=== PATIENT | female | born 1995 | race Caucasian/White ===

== ENCOUNTER 2017-05-14 22:21 | Emergency (ER) | payer SELFPAY ==
[~2017-05-14] VITALS: Ht 160 cm; Wt 54.0 kg
[2017-05-14 22:44] VITALS: BP 132/69
--- NOTE | 2017-05-14 22:49 | NUR ---
TO LOBBY, A/W DINORA PAYNE ERMD NOTED
--- NOTE | 2017-05-15 00:18 | NUR ---
PATIENT AMBULATED TO ER BED 10.
--- NOTE | 2017-05-15 00:20 | NUR ---
PATIENT IS A 21 Y/O FEMALE WHO PRESENTS TO THE ED C/O URINARY BURNING. PT STATES, "THIS HAS BEEN GOING ON FOR ABOUT 3 DAYS NOW." PT REPORTS 4/10 BURNING URINARY PAIN THAT RADIATES TO THE STOMACH. PT DENIES CP, SOB, N/V/D. PT AAOX4, RR EVEN/UNLABORED. PT REPOSITIONED FOR COMFORT, BED IN LOWEST POSITION. ER MD DR. PENA NOTIFIED. WILL CONTINUE TO MONITOR.
[2017-05-15 01:31] VITALS: BP 129/72
--- NOTE | 2017-05-15 01:31 | NUR ---
Patient discharged with v/s stable. Written and verbal after care instructions given and explained. Patient alert, oriented and verbalized understanding of instructions. Ambulatory with steady gait. All questions addressed prior to discharge. ID band removed. Patient advised to follow up with PMD. Rx of PYRIDIUM 200MG, MOTRIN 600MG AND CIPRO 500MG given. Patient educated on indication of medication including possible reaction and side effects. Opportunity to ask questions provided and answered.
== END 2017-05-15 01:31 | disposition home or self-care (01) ==
LOC: MED 22:21
DX: N39.0 Urinary tract infection, site not specified (principal)
CPT/HCPCS: 81002; 81025; 99283

== ENCOUNTER 2018-07-02 22:17 | Emergency (ER) | payer OTHER ==
[~2018-07-02] VITALS: Ht 160 cm; Wt 47.6 kg
[2018-07-02 22:25] VITALS: BP 139/76
--- NOTE | 2018-07-02 22:27 | NUR ---
PT AMBULATORY TO BR THEN TO ER LOBBY W/ STEADY GAIT IN STABLE CONDITION.
--- NOTE | 2018-07-02 22:37 | NUR ---
PT TAKEN TO BED 5
--- NOTE | 2018-07-02 22:43 | NUR ---
PT TO ED WITH C/O DYSURIA AND HEMATURIA X 1 DAY. NO BLADDER DISTENTION NOTED. DENIES VAGINAL DISCHARGE OR BLEEDING. PT PLACED INTO BED, PENDING MD CASPER.
[2018-07-02 22:58] LABS: APPEARANCE,URINE CLOUDY (CLEAR); BILIRUBIN,URINE NEGATIVE (NEGATIVE); BLOOD, URINE 3+ (NEGATIVE); COLOR,URINE YELLOW (YELLOW); LEUKOCYTE ESTERASE ,URINE 1+ (NEGATIVE); NITRITE, URINE POSITIVE (NEGATIVE); PH,URINE 6.5 (5.0-9.0); UGLUCOSE NEGATIVE (NEGATIVE)
--- NOTE | 2018-07-02 23:06 | NUR ---
Dr. Shankar evaluating patient at bedside.
[2018-07-02 23:19] LABS: RBC,URINE TOO NUMEROUS TO COUN /HPF (0-5); WBC,URINE TOO MANY TO COUNT /HPF (0-5)
--- NOTE | 2018-07-02 23:32 | NUR ---
Patient discharged with v/s stable. Written and verbal after care instructions given and explained. Patient alert, oriented and verbalized understanding of instructions. Ambulatory with steady gait. All questions addressed prior to discharge. ID band removed. Patient advised to follow up with PMD. Rx of MACROBID, PYRIDUM given. Patient educated on indication of medication including possible reaction and side effects. Opportunity to ask questions provided and answered.
[2018-07-02 23:43] VITALS: BP 131/69
== END 2018-07-02 23:32 | disposition home or self-care (01) ==
LOC: MED 22:17
DX: N39.0 Urinary tract infection, site not specified (principal)
CPT/HCPCS: 81001; 81002; 81025; 87086; 87186; 99283

== ENCOUNTER 2019-02-11 18:21 | Emergency (ER) | payer OTHER ==
[~2019-02-11] VITALS: Ht 160 cm; Wt 46.3 kg
[2019-02-11 19:08] VITALS: BP 146/72
--- NOTE | 2019-02-11 20:39 | NUR ---
PT AMBULATED TO BED 7
--- NOTE | 2019-02-11 21:12 | NUR ---
23 Y/O FEMALE PRESENTS TO ED, C/O COLD LIKE SYMTPOMS. PT STATES IT STARTED LAST FRIDAY. PT DENIES ANY FEVER. PT DENIES ANY N/V/D. NO SOB/CHEST PAIN. PT STATES FEELING GENERALIZED PAIN/WEAKNESS. PT TOOK TYLENOL LAST FRIDAY. PT STABLE. ERMD AWARE. WILL CONTINUE TO MONITOR.
[2019-02-11 21:45] VITALS: BP 131/70
--- NOTE | 2019-02-11 21:45 | NUR ---
PT DISCHARGED BY DR KWOK, PAPERWORK PROVIDED. RX AUGMENTIN. EDUCATED PT REGARDING MEDICATION AND S/E. EDUCATED PT REGARDING D/C DIAGNOSIS AND INSTRUCTIONS. PT VERBALIZED UNDERSTANDING OF TEACHING. TOLD PT TO FOLLOW UP WITH PCP AND WHEN TO RETURN TO ED. PT VSS. ALL QUESTIONS ANSWERED.
== END 2019-02-11 21:45 | disposition home or self-care (01) ==
LOC: MED 18:21
DX: J40 Bronchitis, not specified as acute or chronic (principal)
CPT/HCPCS: 99283

== ENCOUNTER 2020-11-17 22:17 | Emergency (ER) | payer MEDICAID, OTHER ==
[~2020-11-17] VITALS: Ht 160 cm; Wt 46.7 kg
[2020-11-17 22:32] VITALS: BP 137/71
--- NOTE | 2020-11-17 22:52 | NUR ---
PT AMBULATED TO TRIAGE FOR EKG.
--- NOTE | 2020-11-17 22:59 | NUR ---
PT RETURNED TO LOBBY.
--- NOTE | 2020-11-17 23:14 | NUR ---
PATIENT TAKEN TO BED 2.
--- NOTE | 2020-11-17 23:50 | NUR ---
24 YO/F BIB SELF W CO "PANIC ATTACK", CHEST TIGHTNESS, DIFFICULTY BREATHING, AND FEELING LIKE HER STOMACH IS FULL X2 WEEKS BUT CONTINUOUS SINCE 1900 TODAY. PATIENT REPORTS PAIN OF 0/10 BUT REPORTS CHEST DISCOMFORT. ALSO REPORTS DRY COUGH AND IS ON ABX BY PCP. S1S2 PRESENT, CAP REFIL <3SEC, PULSES +2. BREATHING EVEN AND UNLABORED, LUNG SOUNDS CLEAR THROUHGOUT. PATIENT CONNECTED TO MONITOR W VSS. PATIENT SITTING IN BED LOCKED IN LOWEST POSITION X1 SIDE RAIL UP. NAD NOTED, WILL CONTINUE TO MONITOR. PMH:ANEMIA NKA
[2020-11-17] MEDS ORDERED: LORazepam 0.5 MG TAB PO ONE (23:55)
--- NOTE | 2020-11-18 00:30 | NUR ---
PATIENT REPORTS SHE FEELS BETTER AND REPORTS CHEST TIGHTNESS IS GONE.
[2020-11-18 00:37] VITALS: BP 124/73
--- NOTE | 2020-11-18 00:37 | NUR ---
Patient discharged with v/s stable. Written and verbal after care instructions given and explained. Patient verbalized understanding. Ambulatory with steady gait. All questions addressed prior to discharge. Advised to follow up with PMD.
== END 2020-11-18 00:37 | disposition home or self-care (01) ==
LOC: MED 22:17
DX: R07.89 Other chest pain (principal)
CPT/HCPCS: 71045; 93005; 99283

== ENCOUNTER 2021-03-16 21:55 | Emergency (ER) | payer MEDICAID ==
[~2021-03-16] VITALS: Ht 160 cm; Wt 48.6 kg
[2021-03-16 22:37] VITALS: BP 114/84
--- NOTE | 2021-03-17 00:39 | NUR ---
pt taken to bed 11.
--- NOTE | 2021-03-17 00:40 | NUR ---
RECEIVED IN BED 11 WITH C/O CHEST PAIN AFTER EATING. "I FEEL BLOATED AFTER I EAT" 5/10 chest tightness x5days, feel sob. gets worse after eating. went to [facility] 2days ago. went to urgent care for same reason -given methylpredisolone denies hx nkda
[2021-03-17] MEDS ORDERED: FAMO-92 PO (01:23)
--- NOTE | 2021-03-17 01:26 | NUR ---
DR KWOK AT BEDSIDE FOR EXAM
== END 2021-03-17 01:30 | disposition home or self-care (01) ==
LOC: MED 21:55
DX: R07.89 Other chest pain (principal); K21.9 Gastro-esophageal reflux disease without esophagitis; Z79.899 Other long term (current) drug therapy
CPT/HCPCS: 93005; 99283

== ENCOUNTER 2021-06-01 18:27 | Emergency (ER) | payer MEDICAID, SELFPAY ==
[~2021-06-01] VITALS: Ht 160 cm; Wt 47.2 kg
[~2021-06-01 18:27] MED LIST: FAMO-92 PO
[2021-06-01 18:36] VITALS: BP 129/72
--- NOTE | 2021-06-01 19:30 | NUR ---
PT TAKEN TO ER BED 03
--- NOTE | 2021-06-01 19:40 | NUR ---
MATTY LAW AT BEDSIDE
[2021-06-01] MEDS ORDERED: NAPR-54 PO ×2 (19:41→22:50)
[2021-06-01] MEDS ORDERED: PENI500T20 PO ×2 (19:41→22:50)
[2021-06-01] MEDS ORDERED: PRED20TA5 PO ×2 (19:41→22:50)
--- NOTE | 2021-06-01 19:45 | NUR ---
25 Y/O F CARMEN SELF FOR COMPLAINT FOR SORE THROAT, FEVER AND HEADACHE, GENERAL BODY ACHES. PT WENT TO URGENT CARE AND THEY PRESCRIBED HER AMOXICILLIN. PT SAID HER FEVER WOULD NOT COME DOWN EVEN AFTER TAKING IBUPROFEN. PT TOOK TWO COVID TEST THIS WEEK AND BOTH CAME BACK NEGATIVE. PT HAD BEEN TAKING PEDIALYTE AND IBUPROFEN FOR FEVER. PT HAD 1X DIARRHEA IN THE MORNING. DENIES COUGH. PMH: NONE ALLERGIES: NONE
[2021-06-01] MEDS ORDERED: ACETAMINOPHEN EXTRA STRENGTH 500 MG TAB PO ONE (20:25)
[2021-06-01] MEDS ORDERED: IBUPROFEN 600 MG TAB PO ONE (20:25)
[2021-06-01] MEDS ORDERED: DEXAMETHASONE 4 MG/ML VIAL PO ONE (20:25)
--- NOTE | 2021-06-01 20:30 | NUR ---
PT FEVER JAYDA FORM 99 TO 103. ER MADE AWARE . DR. FAN AT BESIDE
--- NOTE | 2021-06-01 20:53 | NUR ---
PT RESTING ON BED. PROVIDED WATER
--- NOTE | 2021-06-01 21:10 | NUR ---
COLLECTED ALL SWABS. WALKED OVER TO LAB
[2021-06-01] MEDS ORDERED: OSELTAMIVIR PHOSPHATE 75 MG CAP PO ONE (21:45)
[2021-06-01 22:23] VITALS: BP 115/65
--- NOTE | 2021-06-01 22:23 | NUR ---
Patient discharged with v/s stable. Written and verbal after care instructions given and explained. Patient alert, oriented and verbalized understanding of instructions. Ambulatory with steady gait. All questions addressed prior to discharge. ID band removed. Patient advised to follow up with PMD. Rx of NAPROXEN, PENICILLIN, PREDNISONE given.Opportunity to ask questions provided and answered.
--- NOTE | 2021-06-01 22:33 | NUR ---
The patient's care was reviewed and supervised by Sena Ryder RN.
== END 2021-06-01 22:23 | disposition home or self-care (01) ==
LOC: MED 18:27
DX: J02.9 Acute pharyngitis, unspecified (principal); Z20.822 Contact with and (suspected) exposure to COVID-19; Z79.2 Long term (current) use of antibiotics; Z79.899 Other long term (current) drug therapy; Z79.1 Long term (current) use of non-steroidal anti-inflammatories (NSAID)
CPT/HCPCS: 36415; 87081; 87426; 87804; 99285; J1100; U0003